=== PATIENT | male | born 1990 ===

== ENCOUNTER 2017-03-10 07:10 | Emergency (ER) | payer SELFPAY ==
[2017-03-10 07:41] VITALS: BP 150/90
--- NOTE | 2017-03-10 07:47 | UC ---
Complaint Male HPI - HPI Summary HPI Summary: "I think I have a hernia". Pt c/o "bulge" and pain in RIGHT groin x1 week. States pain started last week but didn't notice "bulge" in R groin until yesterday. 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 States it "sometimes feel better when I press on it and other times hurts". Pain worse w/ activity, feels better at rest. It Happened at work per patient [ End ] - History of Current Complaint Chief Complaint: UCGeneralIllness Stated Complaint: HERNIA Time Seen by Provider: 03/10/17 07:46 Onset/Duration: Sudden Onset Timing: Intermittent Severity Initially: Mild - Allergies/Home Medications Allergies/Adverse Reactions: Allergies Allergy/AdvReac Type Severity Reaction Status Date / Time No Known Allergies Allergy Verified 03/10/17 07:17 Home Medications: Home Medications NK [No Home Medications Reported] 03/10/17 [History Confirmed 03/10/17] PMH/Surg Hx/FS Hx/Imm Hx Previously Healthy: Yes - Surgical History Surgical History: None - Family History Known Family History: Positive: None - Social History Occupation: Employed Full-time Lives: With Family Alcohol Use: Occasionally Substance Use Type: None Smoking Status (MU): Never Smoked Tobacco - Immunization History Most Recent Influenza Vaccination: NONE 2015 Review of Systems Constitutional: Negative Skin: Negative Eyes: Negative ENT: Negative Respiratory: Negative Cardiovascular: Negative Gastrointestinal: Negative Genitourinary: Negative, Other - hernia Motor: Negative Neurovascular: Negative Musculoskeletal: Negative Neurological: Negative Psychological: Negative All Other Systems Reviewed And Are Negative: Yes Physical Exam Triage Information Reviewed: Yes Appearance: Well-Appearing, No Pain Distress, Well-Nourished Vital Signs: Initial Vital Signs Temp 98.4 F 03/10/17 07:18 Pulse 79 03/10/17 07:18 Resp 18 03/10/17 07:18 BP 174/90 03/10/17 07:18 Pulse Ox 99 03/10/17 07:18 Eye Exam: Normal ENT Exam: Normal Dental Exam: Normal Neck exam: Normal Neck: Positive: 1 Respiratory Exam: Normal Cardiovascular Exam: Normal Abdominal Exam: Normal Musculoskeletal Exam: Normal Neurological Exam: Normal Psychological Exam: Normal Skin Exam: Normal - Additional Comments Right inguinal hernia present and worsened with valsava that was tender and reducible medium sized Complaint Male Course/Dx - Course Course Of Treatment: call surgeon today to make appt. no work for a few days and no lifting > 10 lb until cleared. he is agreeeable . discussed incarcerated / strangulated hernia which he does not have currently but if develop those Sx to go to ED immediately andhe is agreeable - Differential Dx/Diagnosis Differential Diagnosis/HQI/PQRI: Incarcerated Hernia, Testicular Torsion, Other - inguinal hernia Provider Diagnoses: Inguinal hernia Discharge - Discharge Plan Condition: Good Disposition: HOME Patient Education Materials: Inguinal Hernia (ED) Forms: *Work Release Referrals: Pito June MD [Medical Doctor] - As Soon As Possible
== END 2017-03-10 08:09 | disposition home or self-care (01) ==
LOC: UCCORT 07:10
DX: K40.90 Unilateral inguinal hernia, without obstruction or gangrene, not specified as recurrent (principal)
CPT/HCPCS: 99202; G0463